=== PATIENT | female | born 1975 | race Caucasian/White ===

== ENCOUNTER 2016-06-26 06:18 | Emergency (ER) ==
[2016-06-26 06:45] LABS: BILIRUBIN URINE NEGATIVE (NEGATIVE); BLOOD URINE 2+ (NEGATIVE); CLARITY CLEAR (CLEAR); COLOR YELLOW; GLUCOSE URINE NEGATIVE (NEGATIVE); LEUKOCYTES URINE TRACE (NEGATIVE); NITRITE URINE NEGATIVE (NEGATIVE); PROTEIN URINE NEGATIVE (NEGATIVE); URINE SOURCE CLEAN CATCH; UROBILINOGEN URINE NORMAL
[2016-06-26 06:50] LABS: MANUAL DIFF NEEDED? NO
[2016-06-26 06:53] LABS: BASO% 0.3 % (0.0-0.8); EOS% 1.4 % (0.0-10.0); HEMATOCRIT 37.3 % (37.0-47.0); HEMOGLOBIN 12.1 g/dL (12.0-16.0); IMM GRAN# 0.01 X1000 (0.0-0.04); IMM GRAN% 0.1 % (0.0-0.5); LYMPH# 1.56 X1000 (1.2-3.4); LYMPH% 21.7 % (20.5-51.1); MCH 26.7 PG (27-31); MCHC 32.4 g/dL (33-37); MCV 82.2 FL (81-99); MONO# 0.75 X1000 (0.11-0.59); MONO% 10.4 % (1.7-9.3); MPV 12.3 FL (7.4-10.4); NEUT% 66.1 % (42.2-75.2); PLT 196 X1000 (130-400); RBC 4.54 XMIL (4.2-5.4)
[2016-06-26 06:58] LABS: URINE WBC <10 /HPF (<10)
[2016-06-26 06:59] LABS: URINE CULTURE PL NEEDED? YES; URINE EPITHELIAL CELLS <10 /HPF (<10)
[2016-06-26 07:09] LABS: AGAP 11; ALBUMIN 4.4 g/dL (3.5-5.0); ALKALINE PHOSPHATASE 55 U/L (32-104); AMYLASE 32 U/L (20-200); BUN 9 mg/dL (8-22); CALCIUM 8.8 mg/dL (8.8-10.2); CHLORIDE 105 mmol/L (98-107); COSMO 277; GOT 16 U/L (10-30); GPT 18 U/L (10-36); LIPASE 28 U/L (13-60); POTASSIUM 3.9 mmol/L (3.5-5.1); SODIUM 139 mmol/L (136-145); TCO2 24 mmol/L (25-35); TOTAL PROTEIN 7.2 g/dL (6.3-8.3)
[2016-06-26] MEDS ORDERED: ZOFRAN IV ONE (07:14)
--- NOTE | 2016-06-26 09:42 | Diag Imaging Result Document ---
PROCEDURE NAME: ABDOMEN/PELVIS W/CONTRAST - 06/26/2016 CT ABDOMEN AND PELVIS WITH CONTRAST: TECHNIQUE: Exam performed with oral and intravenous contrast. A dose reduction protocol was used. No comparison exam. FINDINGS: The visualized lung bases appear clear except for a small calcified granuloma from old granulomatous disease at the right base. There are no substantial abnormalities of the liver, spleen, adrenal glands, or pancreas identified. There are no calcified gallstones or pericholecystic inflammation identified. The bilateral kidneys enhance homogeneously. There is no hydronephrosis. There are scattered nonspecific small retroperitoneal lymph nodes. There are no substantially enlarged lymph nodes identified. There is no evidence of bowel obstruction. The appendix has oral contrast and air in the lumen and is unremarkable. There is no substantial bowel wall thickening identified. There is no abscess identified. There is no free air. Images of pelvis show a small amount of free fluid. There is also some nonspecific fluid in the endometrial canal of the uterus. IMPRESSION: 1. No evidence of appendicitis. No bowel obstruction. 2. Small amount of free fluid in pelvis. Nonspecific fluid in endometrial canal of uterus. 3. No other visible acute process.
--- NOTE | 2016-06-26 09:47 | PROVIDER DOCUMENTATION ---
HPI-Abdominal Pain/GI Problem - General Chief Complaint: Abdominal Pain Stated Complaint: ABD/FLANK PAIN Time Seen by Provider: 06/26/16 06:52 Source: patient, family Allergies/Adverse Reactions: Patient Allergies Allergy/AdvReac Type Severity Reaction Status Date / Time Penicillins AdvReac Unknown Verified 06/26/16 06:28 Home Medications: No Home Medications 06/26/16 - History of Present Illness-ABD Abdominal Pain Onset Location: reports: RLQ Pain Radiation: reports: no radiation Quality of Pain: reports: sharp Onset/Duration: reports: 3 days ago Timing: reports: still present Activities at Onset: reports: none Exposure to sick contacts?: No Modifying Factors: improves with: nothing Associated Symptoms: reports: loss of appetite Last BM: unsure Dark Stools Present?: reports: none noticed Rectal Bleeding: reports: none Rectal Pain: reports: none Emesis Description: reports: none Bruising or Bleeding Gums?: No Similar Symptoms Previously?: No Recently seen or treated by another doctor?: No Review of Systems - Adult - REVIEW OF SYSTEMS - ADULT Gastrointestinal: reports: abdominal pain All Other Systems: Reviewed and Negative Past History - Adult - PAST MEDICAL HISTORY-ADULT Obstetrical/Gynecological: reports: other (had endometrial ablation on 06/14/17) Physical Exam-General - PHYSICAL EXAM-ADULT Initial Vital Signs Reviewed: Yes - CONSTITUTIONAL General Appearance: mild distress - EYES Eyes: PERRL/EOMI - HEAD, EARS, NOSE, MOUTH & THROAT HENMT: normocephalic/atraumatic - NECK Neck: non-tender - RESPIRATORY Respiratory: chest non-tender - CARDIOVASCULAR Cardiovascular: normal peripheral pulses - CHEST (BREASTS) Chest/Breast: deferred - GASTROINTESTINAL (ABDOMEN) Abdominal Exam: normal bowel sounds, tenderness (tender in the right lower quadrant with guarding) - GENITOURINARY Female Genitalia/Pelvic Exam: deferred Male Genitalia: deferred Rectal Exam: deferred Hemoccult Exam: deferred - LYMPHATIC Lymphatic: no adenopathy - MUSCULOSKELETAL Back Exam: normal inspection Extremity: normal range of motion - SKIN Integumentary: normal color - NEUROLOGIC 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
[2016-06-26 10:56] VITALS: BP 111/78
== END 2016-06-26 10:56 | disposition home or self-care (01) ==
LOC: P.ED 06:18
DX: R10.31 Right lower quadrant pain (principal); R10.9 Unspecified abdominal pain; R10.813 Right lower quadrant abdominal tenderness; R11.0 Nausea
CPT/HCPCS: 74177; 80053; 81001; 81025; 82150; 83690; 85025; 87077; 87088; 87186; 96374; J2405; Q9967